=== PATIENT | male | born 1960 | race African-American/Black ===

== ENCOUNTER 2019-12-10 01:56 | Emergency (ER) | payer SELFPAY ==
[~2019-12-10] VITALS: Ht 172.7 cm; Wt 82.0 kg
[2019-12-10 03:12] LABS: BASOPHILS % 0.6 % (0.0-2.0); EOSINOPHILS % 0.5 % (0.0-5.0); HEMATOCRIT. 41.7 % (42.0-52.0); HEMOGLOBIN. 13.4 g/dL (14.0-18.0); LYMPHOCYTES % 8.2 % (20.0-50.0); MEAN CORPUSCULAR HEMOGLOBIN 23.8 pg (28.0-32.0); MEAN CORPUSCULAR VOLUME 74.1 fL (80.0-94.0); MONOCYTES % 4.9 % (2.0-8.0); NEUTROPHILS % 85.8 % (40.0-76.0); PLATELET 254 x1000/uL (130-400); RED BLOOD CELL COUNT 5.63 mill/uL (4.7-6.1); RED CELL DISTRIBUTION WIDTH 15.3 % (11.6-14.6)
[2019-12-10] MEDS ORDERED: CLONIDINE 0.2MG TABLET PO ONE (03:15)
[2019-12-10 03:17] LABS: CHLORIDE 105 mEq/L (98-107)
[2019-12-10 03:23] LABS: ETHANOL BLOOD < 10 mg/dL
[2019-12-10 04:26] LABS: CLARITY URINE CLEAR (CLEAR); COLOR URINE YELLOW (YELLOW); KETONES URINE 1+ (NEGATIVE); LEUKOCYTE ESTERASE URINE NEGATIVE (NEGATIVE); NITRITE URINE NEGATIVE (NEGATIVE); OCCULT BLOOD URINE NEGATIVE (NEGATIVE); PH URINE 7.5 (4.5-8.0); PROTEIN URINE TRACE (NEGATIVE); SPECIFIC GRAVITY URINE 1.016 (1.005-1.030); UROBILINOGEN URINE 0.2 E.U./dL (0.2-1.0)
[2019-12-10 04:41] LABS: *AMPHETAMINES SCREEN URINE NEGATIVE (NEGATIVE); *BARBITURATES SCREEN URINE NEGATIVE (NEGATIVE); *BENZODIAZEPINES SCREEN URINE NEGATIVE (NEGATIVE); *COCAINE SCREEN URINE NEGATIVE (NEGATIVE)
[2019-12-10 04:42] LABS: CANNABINOID URINE SCREEN NEGATIVE (NEGATIVE); METHADONE URINE SCREEN NEGATIVE (NEGATIVE); OPIATES URINE SCREEN NEGATIVE (NEGATIVE); PHENCYCLIDINE URINE SCREEN PRESUMTIVE POSITIVE (NEGATIVE)
[2019-12-10] MEDS: BACITRACIN ZINC OINT UDPKT TOP ONE ×2 (07:49→08:03)
[2019-12-10 10:00] VITALS: BP 189/87
[2019-12-10] MEDS ORDERED: AMLODIPINE 5MG TABLET PO ONE (10:45)
== END 2019-12-10 10:58 | disposition home or self-care (01) ==
LOC: ER 01:56
DX: T40.995A Adverse effect of other psychodysleptics [hallucinogens], initial encounter (principal); R41.82 Altered mental status, unspecified; I10 Essential (primary) hypertension; Y92.488 Other paved roadways as the place of occurrence of the external cause
CPT/HCPCS: 36415; 80053; 80305; 80320; 81003; 84484; 85025; 93005; 99291; G0480